=== PATIENT | male | born 1960 | race Caucasian/White ===

== ENCOUNTER → 2017-03-04 | Outpatient (CLI) | payer MEDICAID, MEDICARE ==
[~2017-03-04] MED LIST: CAPE500T24 PO; HYDR-3307 PO; NONE PER PT
== END | disposition home or self-care (01) ==
LOC: RAD 15:30 → EDSTATUS 15:30
PROVIDERS: ATTEND Internal Medicine Hematology & Oncology
DX: M79.89 Other specified soft tissue disorders (principal); C20 Malignant neoplasm of rectum

== ENCOUNTER → 2017-03-10 | Outpatient (CLI) | payer MEDICAID, MEDICARE ==
[~2017-03-10] MED LIST changes: +OMNIPAQUE 350 MG/ML, 100ML BOTTLE ONE
== END | disposition home or self-care (01) ==
LOC: CFH 12:57
PROVIDERS: ATTEND Internal Medicine Hematology & Oncology
DX: C20 Malignant neoplasm of rectum (principal); J84.10 Pulmonary fibrosis, unspecified; K76.9 Liver disease, unspecified; N28.1 Cyst of kidney, acquired
CPT/HCPCS: 71260; 74177; Q9967

== ENCOUNTER → 2017-03-20 | Outpatient (CLI) | payer MEDICARE ==
[~2017-03-20] MED LIST changes: +GADOBUTROL 10 MMOL/10 ML VIAL ONE; -OMNIPAQUE 350 MG/ML, 100ML BOTTLE ONE
== END | disposition home or self-care (01) ==
LOC: CFH 06:51
PROVIDERS: ATTEND Internal Medicine Hematology & Oncology
DX: C20 Malignant neoplasm of rectum (principal); N28.1 Cyst of kidney, acquired
CPT/HCPCS: 74183; A9585

== ENCOUNTER → 2017-09-17 | Outpatient (CLI) | payer MEDICAID, MEDICARE ==
[~2017-09-17] MED LIST changes: -GADOBUTROL 10 MMOL/10 ML VIAL ONE; +OMNIPAQUE 350 MG/ML, 100ML BOTTLE ONE
== END | disposition home or self-care (01) ==
LOC: CFH 07:22
PROVIDERS: ATTEND Internal Medicine Hematology & Oncology
DX: C20 Malignant neoplasm of rectum (principal); K57.30 Diverticulosis of large intestine without perforation or abscess without bleeding; I70.0 Atherosclerosis of aorta; I51.7 Cardiomegaly; J98.11 Atelectasis; N28.1 Cyst of kidney, acquired; Z90.49 Acquired absence of other specified parts of digestive tract; Z93.3 Colostomy status
CPT/HCPCS: 71260; 74177; Q9967

== ENCOUNTER → 2017-12-14 | Outpatient (CLI) | payer MEDICARE | END | disposition home or self-care (01) | LOC: CFH 11:39 | PROVIDERS: ATTEND Internal Medicine Hematology & Oncology | DX: K76.89 Other specified diseases of liver (principal); C20 Malignant neoplasm of rectum | CPT/HCPCS: 74177; Q9967 ==

== ENCOUNTER → 2018-07-22 | Outpatient (CLI) | payer MEDICAID, MEDICARE | END | disposition home or self-care (01) | LOC: RAD 11:24 | PROVIDERS: ATTEND Internal Medicine Hematology & Oncology | DX: C20 Malignant neoplasm of rectum (principal); K76.0 Fatty (change of) liver, not elsewhere classified; I51.7 Cardiomegaly | CPT/HCPCS: 71260; 74177; Q9967 ==